=== PATIENT | female | born 2000 | race Caucasian/White ===

== ENCOUNTER 2024-02-21 15:52 | Outpatient (REF) | payer OTHER, SELFPAY ==
[2024-02-21 18:27] LABS: MANUAL DIFF FLAG NO
[2024-02-21 18:38] LABS: Basophils Percent Auto 0.4 % (0-2); Eosinophils Absolute Auto 0.2 X10*3/uL (0.0-0.4); Eosinophils Percent Auto 3.9 % (0-4); Hematocrit 37.8 % (37.0-47.0); Hemoglobin 12.8 g/dl (12.0-16.0); Imm Gran Abs Auto 0.01 X10*3/uL (0.00-0.03); Imm Gran Pct Auto 0.2 % (0.0-0.4); Lymphocytes Absolute Auto 2.3 X10*3/uL (1.2-4.9); Lymphocytes Percent Auto 45.5 % (20-40); Mean Corpuscular HGB Conc 33.9 g/dl (31.0-35.0); Mean Corpuscular Hemoglobin 29.6 pg (27.0-33.0); Mean Corpuscular Volume 87.5 fL (80.0-98.0); Mean Platelet Volume 12.7 fL (9.4-12.3); Monocytes Absolute Auto 0.4 X10*3/uL (0.1-1.2); Monocytes Percent Auto 7.2 % (2-11); Neutrophils Absolute Auto 2.2 x10*3/uL (2.0-8.3); Neutrophils Percent Auto 42.8 % (45-73); Platelet Count 216 X10*3/uL (160-400); Red Blood Count 4.32 X10*6/uL (4.20-5.50); Red Cell Distribution Width 12.1 % (11.0-16.0); White Blood Count 5.1 X10*3/uL (4.8-10.8)
[2024-02-22 10:18] LABS: Complement C3 94 mg/dL (83-193)
[2024-02-22 10:58] LABS: Herpes Simplex Type 1 IgG <0.90 index; Herpes Simplex Type 2 IgG <0.90 index
[2024-02-22 11:13] LABS: IgA 145 mg/dL (47-310); IgG 1234 mg/dL (600-1640); IgM 86 mg/dL (50-300)
[2024-02-22 13:58] LABS: Immunoglobulin E 255 kU/L (<OR=114)
[2024-02-22 15:34] LABS: Immunoglobulin G Subclass 1 646 mg/dL (382-929); Immunoglobulin G Subclass 2 271 mg/dL (241-700); Immunoglobulin G Subclass 3 62 mg/dL (22-178); Immunoglobulin G Subclass 4 49.8 mg/dL (4-86); Immunoglobulin G Total 1133 mg/dL (600-1640)
== END 2024-02-21 15:53 | disposition home or self-care (01) ==
LOC: HO.WFDLDS 15:52
PROVIDERS: Visit Provider Allergy & Immunology
DX: B10.89 Other human herpesvirus infection (principal)
CPT/HCPCS: 82784; 82785; 85025; 86160; 86695; 86696

== ENCOUNTER 2024-03-11 15:45 | Outpatient (AMB) | payer OTHER, SELFPAY ==
--- NOTE | 2024-03-11 15:55 | MHC.PC.OV ---
Vital Signs 03/11/24 16:01 03/11/24 16:23 Height 4 ft 11.92 in Weight 97 lb 6 oz BMI 19.1 BP 126/80 Blood Pressure Location Rt brachial Position Sitting Respiration 14 Pulse 114 H 88 Pulse Source Pulse Oximeter Temp 98.6 F Temp Source Oral Pulse Oximetry (%) 98 Oxygen Delivery Method Room Air Intake Visit Reasons: Establish Care Intake Note: New patient visit Wash Worker Required: No Is last menstrual period known: Yes Last menstrual period: 03/09/24 Allergies peanut Allergy (Intermediate, Verified 03/11/24 16:46) Hives soy Allergy (Intermediate, Verified 03/11/24 16:46) Hives tree nut Allergy (Intermediate, Verified 03/11/24 16:46) Hives wheat Allergy (Intermediate, Verified 03/11/24 16:46) Hives Tobacco use date assessed: 03/11/24 Dental Screening Dental Screen Date: 03/11/24 Did you have a dental visit in the last 12 months?: Yes Did you have a dental problem in the last 6 months where you did not have access to dental care?: No Was dental information given to patient?: Patient has dentist HPI HPI Comments History of Present Illness Details This is a 23-year-old female with a past medical history of food allergies, asthma, environmental allergies and shingles presenting [facility]. She is due for a physical. The patient saw her financial systems manager a couple of weeks ago. She is on Zyrtec and uses nasal spray [rm for environmental allergies. She still has symptoms. She is allergic to peanuts, tree nuts, wheat and soy. If she consumes these foods she gets hives. No history of anaphylaxis. She has mild intermittent asthma treated with albuterol as needed. No hospitalizations or systemic steroids within the past year. She told the financial systems manager that she does seem to get sick frequently with viruses, and she had shingles twice last year. She thought it might be related to stress. She had blood tests performed on the 20 of February. Complement C4 is mildly decreased by the lab range. Her total IgE is 255 which is high, but this likely corresponds to her history of allergic disease. Patient says this started after she had COVID-19 in 2020. She also has felt fatigued and had frequent headaches since that time. She occasionally gets a migraine associated with nausea and sensitivity to light and sound, but usually she just has headaches. She endorses chronic congestion and sinus infections. 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 She gets anxiety at appointments, but she denies anxiety otherwise. She has a history of heavy menstrual periods. Menses last 7 days, and the 1st 4 days are very heavy. She has no appetite during her period. She saw Gynecology last year, and they tried 2 different contraceptive pills, but she did not tolerate side effects. Patient says she becomes cold easily. ROS: Constitutional: No unexplained weight loss, fever, chills or night sweats. Eyes: No vision changes, blurry vision, double vision, eye pain, eye redness, eye discharge. Respiratory: No shortness of breath, cough or sputum production. Cardiovascular: No chest pain, chest pressure or chest discomfort. No palpitations or pedal edema. Gastrointestinal: No anorexia, nausea, vomiting or diarrhea. No abdominal pain or blood in stool. Genitourinary: No dysuria, hematuria, urinary frequency. Neurologic: No dizziness, syncope, unilateral weakness, ataxia, numbness or tingling in the extremities. Hematologic/Lymphatics: No bleeding or bruising. No painful lymph nodes. Endocrine: No heat intolerance Physical exam: Constitutional: Alert, in no distress. Head: Normocephalic. Eyes: Pupils are equal, round and reactive to light. Extraocular muscles intact. Ear, Nose and Throat: TMs normal. Nasal mucosa mildly pale with 2+ hypertrophy of the inferior turbinates. No nasal discharge. No oral lesions. Neck: Supple, Full range of motion. No lymphadenopathy. No palpable thyroid masses. Respiratory: Clear to auscultation. Cardiovascular: S1 S2 regular. No murmurs. Gastrointestinal: Abdomen soft, non-tender, non-distended. Normal bowel sounds. No palpable masses. Neurologic: No focal neurological deficits. Symmetric patellar reflexes. Moves all extremities spontaneously. Sensation intact bilaterally. Skin: No rashes or lesions. Musculoskeletal: No gross deformities. Normal range of motion. Extremities: Warm and well perfused. No clubbing, cyanosis or edema. 3+ peripheral pulses bilaterally. Psychiatric: Normal mood and affect [facility] Medical History (Updated 03/11/24 @ 16:45 by ANNE MARIE Zhang) Heavy menses History of shingles Fatigue Multiple food allergies Mild intermittent asthma without complication Seasonal allergic rhinitis due to pollen Family History (Updated 03/11/24 @ 16:44 by ANNE MARIE Zhang) Mother Asthma Father Asthma Maternal Grandmother Hypertension Diabetes Paternal Grandfather Cardiovascular disease Maternal Grandfather Thyroid disorder Social History (Updated 03/11/24 @ 16:08 by Hui Ryan [facility]) Housing: House Patient Tobacco Use Status: Never used Tobacco e-Cigarette/Vaping Use: Never Used Second Hand Smoke Exposure: No Current occupational status: employed 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 1. Little interest or pleasure in doing things: not at all 2. Feeling down, depressed, or hopeless: not at all 3. Trouble falling or staying asleep, or sleeping too much: not at all 4. Feeling tired or having little energy: not at all 5. Poor appetite or overeating: not at all 6. Feeling bad about yourself - or that you are a failure or have let yourself or your family down: not at all 7. Trouble concentrating on things, such as reading the newspaper or watching television: not at all 8. Moving or speaking so slowly that other people could have noticed. Or the opposite - being so fidgety or restless that you have been moving around a lot more than usual: not at all 9. Thoughts that you would be better off or of hurting yourself in some way: not at all Total score: 0 Depression Screening Interpretation: Negative Depression Screening Done: Yes 54142 - PHQ-9 Billing: Yes Source: Developed by Drs. Terry Worrell, Cher Alaniz, Jose Nickerson and colleagues, with an educational victoriano from [employer]. Thrive Questionnaire Date Thrive assessed: 03/11/24 I am a: Patient What is your living situation today?: I have a steady place to live Within the past 12 months, did the food you bought not last and you didn't have the money to get more?: Never true Within the past 12 months, did you worry whether your food would run out before you got money to buy more?: Never true Do you have trouble paying for medicines?: No Do you have trouble getting transportation to medical appointments?: No Do you have trouble paying your heating and electricity bill?: No Do you have trouble taking care of your child, family member or friend?: No Do you have trouble with day-to-day activities such as bathing, preparing meals, shopping, managing finances, etc.?: No Are you currently unemployed and looking for a job?: No Are you interested in more education?: No Please select the resources that you would like help with: None Currently or been in a relationship where the following occur: No concerns reported THRIVE Score: 0 AUDIT C Alcohol Use Questionnaire (AUDIT-C) 1. How often do you have a drink containing alcohol?: Never 3. How often do you have six or more drinks on one occasion?: Never Total Score: 0 GEMINI-7 AMB Questionnaire GEMINI-7 Date GEMINI - 7 assessed: 03/11/24 Feeling nervous, anxious, or on edge: 0 = Not at all Not being able to stop or control worryin = Not at all Worrying too much about different things: 0 = Not at all Trouble relaxin = Not at all Being so restless that it is hard to sit still: 0 = Not at all Becoming easily annoyed or irritable: 0 = Not at all Feeling afraid as if something awful might happen: 0 = Not at all Total GEMINI-7 score (0-4 normal; 5-9 mild; 10-14 moderate; 15-21 severe): 0 Source: Developed by Drs. Terry Worrell, Cher Alaniz, Jose Nickerson and colleagues, with an educational victoriano from [employer]. GEMINI-7 Assessment Billing GEMINI-7 Assessment Tool: GEMINI-7 Assessment 62292 Physical exam (Primary Care) Vital Signs: Last Vital Signs Temp 98.6 F 03/11/24 16:01 Pulse 114 H 03/11/24 16:01 Resp 14 03/11/24 16:01 BP 126/80 03/11/24 16:01 Pulse Ox 98 03/11/24 16:01 Oxygen Delivery Method Room Air 03/11/24 16:01 BMI result Body Mass Index 19.1 Tobacco/Smoking Status: Tobacco use Status Tobacco use date assessed 03/11/24 03/11/24 16:07 Patient Tobacco Use Status Never used Tobacco 03/11/24 16:09 e-Cigarette/Vaping Use Never Used 03/11/24 16:08 PHQ-9: PHQ-9 Score PHQ-9: Total score 0 03/11/24 16:16 Depression Screening Interpretation: Negative Thrive Assessment: Date of Thrive Assessment Date Thrive assessed 03/11/24 03/11/24 16:07 Currently or been in a relationship where the following occur: No concerns reported Assessment and Plan Assessment & Plan (1) Routine physical examination: Code(s): Z00.00 - Encounter for general adult medical examination without abnormal findings (2) Heavy menses: Code(s): N92.0 - Excessive and frequent menstruation with regular cycle Qualifiers: Menorrhagia type: with regular cycle Qualified Code(s): N92.0 - Excessive and frequent menstruation with regular cycle (3) Fatigue: Code(s): R53.83 - Other fatigue Qualifiers: Fatigue type: chronic, unspecified Qualified Code(s): R53.82 - Chronic fatigue, unspecified (4) Multiple food allergies: Code(s): Z91.018 - Allergy to other foods (5) Mild intermittent asthma without complication: Code(s): J45.20 - Mild intermittent asthma, uncomplicated (6) Seasonal allergic rhinitis due to pollen: Code(s): J30.1 - Allergic rhinitis due to pollen Plan Routine physical exam Patient is seen today for a routine physical. As part of this visit we reviewed the following issues, which are considered and essential part of preventative health in this age group: - Breast Cancer screening - Annual Audio Visual Coordinator exam - Blood pressure screening annually - Cholesterol screening - Osteoporosis prevention including calcium/vitamin D intake, weight bearing exercise & smoking cessation - Nutritional and exercise counseling - Counseling of injury prevention including fire prevention, smoke alarms and seat belt usage - Screening for depression - Prevention of and/or testing for infectious diseases - declined screening tests - Education about skin cancer - Recommendations about immunizations - Recommendation of an eye exam - Screening for substance abuse - Genetic cancer risk screening Heavy menses Check iron studies. Patient advised to schedule follow up/annual if she is due with OBGYN. Fatigue/headaches Suspect possible iron deficiency, allergies contributing to this. She also brings up possibility of long COVID since it started after the infection in 2020. Checking labs for fatigue. Denies snoring but could consider sleep study for persistent symptoms if labs are nondiagnostic. Multiple food allergies Continue strict avoidance. EpiPen is up-to-date per patient. Asthma Controlled. Continue albuterol as needed. Seasonal allergies Continue management per financial systems manager. Follow up based on labs. Orders: Orders TSH reflex Free T4 Today E66.9 - Obesity, unspecified, G89.29 - Other chronic pain, R51.9 - Headache, unspecified, R53.83 - Other fatigue, Z13.6 - Encounter for screening for cardiovascular disorders IRON PROFILE Today G89.29 - Other chronic pain, R51.9 - Headache, unspecified, R53.83 - Other fatigue, Z13.6 - Encounter for screening for cardiovascular disorders Ferritin Today G89.29 - Other chronic pain, R51.9 - Headache, unspecified, R53.83 - Other fatigue, Z13.6 - Encounter for screening for cardiovascular disorders Lyme IgG/IgM w/reflex to WB Today G89.29 - Other chronic pain, R51.9 - Headache, unspecified, R53.83 - Other fatigue, Z13.6 - Encounter for screening for cardiovascular disorders Lipid Panel Today G89.29 - Other chronic pain, R51.9 - Headache, unspecified, R53.83 - Other fatigue, Z13.6 - Encounter for screening for cardiovascular disorders Comprehensive Met. Panel Today G89.29 - Other chronic pain, R51.9 - Headache, unspecified, R53.83 - Other fatigue, Z13.6 - Encounter for screening for cardiovascular disorders Vitamin B12 Today G89.29 - Other chronic pain, R51.9 - Headache, unspecified, R53.83 - Other fatigue, Z13.6 - Encounter for screening for cardiovascular disorders Coding Level of Care Code New Pt Prev Care [id number]([id number] Diagnoses Routine physical examination Z00.00 Menorrhagia with regular cycle N92.0 Menorrhagia type: with regular cycle Chronic fatigue R53.82 Fatigue type: chronic, unspecified Multiple food allergies Z91.018 Mild intermittent asthma without complication J45.20 Seasonal allergic rhinitis due to pollen J30.1 Additional Codes GEMINI-7 Assessment Billing - GEMINI-7 Assessment Tool: GEMINI-7 Assessment [id number] ([id number])
[2024-03-11 16:01] VITALS: BP 126/80; PULSE 114; RESP 14; TEMP 37; O2SAT 98; BMI 19.1
[2024-03-11 16:23] VITALS: PULSE 88
== END 2024-03-11 16:32 | disposition home or self-care (01) ==
PROVIDERS: PCP Physician Assistant Medical; Visit Provider Physician Assistant Medical
DX: Z00.00 Encounter for general adult medical examination without abnormal findings (principal); N92.0 Excessive and frequent menstruation with regular cycle; R53.82 Chronic fatigue, unspecified; Z91.018 Allergy to other foods; J45.20 Mild intermittent asthma, uncomplicated; J30.1 Allergic rhinitis due to pollen
CPT/HCPCS: 99385

== ENCOUNTER 2024-03-22 08:25 | Outpatient (REF) | payer OTHER, SELFPAY ==
[2024-03-22 11:59] LABS: Vitamin B12 485 pg/mL (200-900)
[2024-03-22 12:02] LABS: Alanine Aminotransferase 11 U/L (0-31); Albumin Level 4.5 g/dL (3.5-5.0); Alkaline Phosphatase 62 U/L (39-117); Anion Gap 11 (12-20); Aspartate Amino Transferase 17 U/L (5-31); Bilirubin Total 1.2 mg/dL (0.0-1.0); Blood Urea Nitrogen 11 mg/dL (9-16); Calcium 9.6 mg/dL (8.4-10.2); Carbon Dioxide 25 mmol/L (22-29); Chloride 108 mmol/L (96-108); Cholesterol 159 mg/dL (<200); Estimated Glomerular Filt Rate > 60; Ferritin 16 ng/mL (10-122); Glucose Random 86 mg/dL (60-115); HDL Cholesterol 56 mg/dL (>40); Iron 71 mcg/dL (30-160); LDL Cholesterol Calculated 87 mg/dL (<100); Percent Iron Saturation 21 % (15-50); Potassium 3.6 mmol/L (3.3-5.1); Sodium 140 mmol/L (135-145); TSH reflex Free T4 1.17 uIU/mL (0.32-4.0); Total Iron Binding Capacity 334 mcg/dL (228-428); Total Protein 7.3 g/dL (6.5-8.0); Triglycerides 82 mg/dL (<150); Unsaturated Iron Binding 263 ug/dL
[2024-03-26 01:38] LABS: Lyme Abs Screen <0.90 index
== END 2024-03-22 08:26 | disposition home or self-care (01) ==
LOC: HO.WFDLDS 08:25
PROVIDERS: Visit Provider Physician Assistant Medical
DX: G89.29 Other chronic pain (principal); E66.9 Obesity, unspecified; R51.9 Headache, unspecified; R53.83 Other fatigue; Z13.6 Encounter for screening for cardiovascular disorders
CPT/HCPCS: 36415; 80053; 80061; 82607; 82728; 83540; 84443; 86617; 86618

== ENCOUNTER 2024-11-07 11:33 | Outpatient (AMB) | payer OTHER, SELFPAY ==
--- NOTE | 2024-11-07 11:41 | A.OFFPC_ITS ---
Vital Signs 11/07/24 11:46 Height 4 ft 11.2 in Weight 91 lb 6 oz BMI 18.3 BP 120/77 Blood Pressure Location Rt brachial Position Sitting Respiration 16 Pulse 87 Pulse Source Pulse Oximeter Temp 98.3 F Temp Source Oral Pulse Oximetry (%) 100 Oxygen Delivery Method Room Air Intake Visit Reasons: MEDICATION UPAGE Intake Note: patient here c/o having a very heavy period and is throwing up. she tested positive for the flu at home with a home test and is feeling very weak. 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: No Was dental information given to patient?: Yes HPI HPI Comments History of Present Illness Details This is a 23-year-old female with a past medical history of food allergies, asthma and environmental allergies presenting for a sick visit. She is accompanied by her mother. Patient states see on Monday she developed sore throat, cough, body aches, fatigue and felt feverish. Did not take her temperature. She took a home test on Monday and tested positive for influenza A. She has been using Tylenol as needed with minimal improvement. She felt better yesterday and went back to work. Today she feels more tired. Endorses mild cough. Continues with body aches and fatigue. Sore throat resolved. Did not receive flu vaccine this season. Patient has asthma but denies shortness of breath and wheezing. She has not required her albuterol inhaler this week. Patient says she is vomiting and having diarrhea which she attributes to her menstrual cycle which started this past Monday. She thinks that is also why she feels so tired. She says that she always gets vomiting and diarrhea with menses, and menses is very heavy. She passes clots. She feels very tired. She has not been able to keep much down. Decreased appetite. Vitals are normal. She is able to walk and take care of herself at home. Patient contacted her surgical first assistant's office. She sees the PA at Dr. Sheppard's office. She has tried to oral contraceptive pills in the past which did not work. They discussed a plan of starting the Depo shot, and told her to call 3-5 days after her menstrual period started. She did this this week, but they said that they could not prescribe the Depo shot, and they were asking if I will send it over for her. She has not started it yet. Aside from Tylenol she tried taking 4 mg ondansetron, but she still has little appetite in his vomiting when she tries to eat. Denies abdominal pain. ROS: Constitutional: + weight loss, + subjective fever, no chills, no night sweats, +fatigue Eyes: No vision changes, blurry vision, double vision, eye pain, eye redness, eye discharge. ENT: No ear pain, hearing loss, sinus pain, sneezing, sore throat Respiratory: No shortness of breath or sputum production. Cardiovascular: No chest pain Gastrointestinal: See HPI Genitourinary: No dysuria, hematuria, urinary frequency. Neurologic: No dizziness, syncope, numbness, tingling. + headache. Musculoskeletal: No back pain, joint swelling, weakness Skin: No rash Physical exam: Constitutional: Alert, in no distress. Eyes: Pupils are equal, round and reactive to light. Extraocular muscles intact. Ear, Nose and Throat: TMs normal. Nasal mucosa mildly pale with 2+ hypertrophy of the inferior turbinates. No nasal discharge. Sinuses nontender. No oral lesions. No oropharyngeal exudates, edema or erythema. Neck: Supple, Full range of motion. No lymphadenopathy. Respiratory: Clear to auscultation. Cardiovascular: S1 S2 regular. No murmurs. Gastrointestinal: Abdomen soft, non-tender, non-distended. Normal bowel sounds. No palpable masses. : No CVA tenderness Neurologic: No focal neurological deficits. Skin: No rashes Musculoskeletal: No gross deformities. Normal range of motion. Extremities: Warm and well perfused. No clubbing, cyanosis or edema. Symmetric peripheral pulses bilaterally. Psychiatric: Normal mood and affect [facility] Medical History (Updated 11/07/24 @ 12:45 by ANNE MARIE Zhang) Menorrhagia with irregular cycle Flu-like symptoms Heavy menses History of shingles Fatigue Multiple food allergies Mild intermittent asthma without complication Seasonal allergic rhinitis due to pollen Family History (Updated 03/11/24 @ 16:44 by ANNE MARIE Zhang) Mother Asthma Father Asthma Maternal Grandmother Hypertension Diabetes Paternal Grandfather Cardiovascular disease Maternal Grandfather Thyroid disorder Social History (Updated 03/11/24 @ 16:08 by Hui Ryan CMA) Housing: House Patient Tobacco Use Status: Never used Tobacco e-Cigarette/Vaping Use: Never Used Second Hand Smoke Exposure: No Current occupational status: employed 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 1. Little interest or pleasure in doing things: not at all 2. Feeling down, depressed, or hopeless: not at all 3. Trouble falling or staying asleep, or sleeping too much: not at all 4. Feeling tired or having little energy: not at all 5. Poor appetite or overeating: not at all 6. Feeling bad about yourself - or that you are a failure or have let yourself or your family down: not at all 7. Trouble concentrating on things, such as reading the newspaper or watching television: not at all 8. Moving or speaking so slowly that other people could have noticed. Or the opposite - being so fidgety or restless that you have been moving around a lot more than usual: not at all 9. Thoughts that you would be better off or of hurting yourself in some way: not at all Total score: 0 Source: Developed by Drs. Terry Worrell, Cher Alaniz, Jose Nickerson and colleagues, with an educational victoriano from [employer]. Thrive Questionnaire Date Thrive assessed: 11/07/24 I am a: Patient What is your living situation today?: I have a steady place to live Within the past 12 months, did the food you bought not last and you didn't have the money to get more?: Never true Within the past 12 months, did you worry whether your food would run out before you got money to buy more?: Never true Do you have trouble paying for medicines?: No Do you have trouble getting transportation to medical appointments?: No Do you have trouble paying your heating and electricity bill?: No Do you have trouble taking care of your child, family member or friend?: No Do you have trouble with day-to-day activities such as bathing, preparing meals, shopping, managing finances, etc.?: No Are you currently unemployed and looking for a job?: No Are you interested in more education?: No Please select the resources that you would like help with: None Currently or been in a relationship where the following occur: No concerns reported THRIVE Score: 0 AUDIT C Alcohol Use Questionnaire (AUDIT-C) 1. How often do you have a drink containing alcohol?: Never 3. How often do you have six or more drinks on one occasion?: Never Total Score: 0 GEMINI-7 AMB Questionnaire GEMINI-7 Date GEMINI - 7 assessed: 03/11/24 Feeling nervous, anxious, or on edge: 0 = Not at all Not being able to stop or control worryin = Not at all Worrying too much about different things: 0 = Not at all Trouble relaxin = Not at all Being so restless that it is hard to sit still: 0 = Not at all Becoming easily annoyed or irritable: 0 = Not at all Feeling afraid as if something awful might happen: 0 = Not at all Total GEMINI-7 score (0-4 normal; 5-9 mild; 10-14 moderate; 15-21 severe): 0 Source: Developed by Drs. Terry Worrell, Cher Alaniz, Jose Nickerson and colleagues, with an educational victoriano from [employer]. Physical exam (Primary Care) Vital Signs: Last Vital Signs Temp 98.3 F 11/07/24 11:46 Pulse 87 11/07/24 11:46 Resp 16 11/07/24 11:46 BP 120/77 11/07/24 11:46 Pulse Ox 100 11/07/24 11:46 Oxygen Delivery Method Room Air 11/07/24 11:46 BMI result Body Mass Index 18.3 Tobacco/Smoking Status: Tobacco use Status Tobacco use date assessed 11/07/24 11/07/24 11:49 Patient Tobacco Use Status Never used Tobacco 11/07/24 11:42 e-Cigarette/Vaping Use Never Used 11/07/24 11:42 PHQ-9: PHQ-9 Score PHQ-9: Total score 0 11/07/24 12:15 Thrive Assessment: Date of Thrive Assessment Date Thrive assessed 11/07/24 11/07/24 11:42 Currently or been in a relationship where the following occur: No concerns reported Coding Level of Care Code Est Pt Level 4 (24077) Complex EM visit Add On G2211 Diagnoses Flu-like symptoms R68.89 Menorrhagia with irregular cycle N92.1 Assessment & Plan Assessment & Plan (1) Flu-like symptoms: Code(s): R68.89 - Other general symptoms and signs Category: Medical Plan: Testing for COVID/flu/RSV sent to lab. Patient currently afebrile. Vitals are normal. Check labs. Supportive care at home reviewed. Warning signs warranting ER evaluation reviewed. If she is not able to keep food or liquids down she needs to go to the ER for IV fluids. They understand. Note provided for work. (2) Menorrhagia with irregular cycle: Code(s): N92.1 - Excessive and frequent menstruation with irregular cycle Category: Medical Plan: I am not comfortable starting the patient on Depo-Provera. I will send a message to have nursing reach out to her surgical first assistant office to try and sort this out for the patient. They also requested I put in a referral for alternative OBGYN office which I did urgently for [facility]. Sent ondansetron 8 mg every 8 hours as needed for nausea and vomiting. Side effects reviewed. She has alternating with Tylenol and ibuprofen. Check labs. Plan She will schedule a physical with me this summer. Letter provided for work this week. Orders: Orders Complete Blood Count Auto Diff Today N92.0 - Excessive and frequent menstruation with regular cycle, R68.89 - Other general symptoms and signs Comprehensive Met. Panel Today N92.0 - Excessive and frequent menstruation with regular cycle, R68.89 - Other general symptoms and signs SARS-CoV2/FLU/RSV Today N92.0 - Excessive and frequent menstruation with regular cycle, R09.89 - Other specified symptoms and signs involving the circulatory and respiratory systems, R68.89 - Other general symptoms and signs IRON PROFILE Today N92.0 - Excessive and frequent menstruation with regular cycle, R68.89 - Other general symptoms and signs TSH reflex Free T4 Today N92.0 - Excessive and frequent menstruation with regular cycle, R68.89 - Other general symptoms and signs Magnesium Today N92.0 - Excessive and frequent menstruation with regular cycle, R68.89 - Other general symptoms and signs Referrals TELECOM MANAGER Referral N92.1 - Excessive and frequent menstruation with irregular cycle Medications: New ondansetron 8 mg PO Q8H PRN 30 tabs 0RF nausea and vomiting
[2024-11-07 11:46] VITALS: BP 120/77; PULSE 87; RESP 16; TEMP 36.8; O2SAT 100; BMI 18.3
--- OUTSIDE RECORDS SUMMARY | 2024-11-07 14:06 | XMS_ITS | Data Portability ---
Author Organization [place] - [facility] Olamide Burak [employer] Address [address] [place] [address] Assessment No assessment recorded. Plan of Treatment Reminders Order Date Submit Date Provider Last Modified By Organization Details Last Modified Time Details Appointments None recorded. Lab rapid SARS CoV 2 Ag, QL IA, respiratory specimen 2021 022 [id number] Ariel [address] [place] [address], [place], [address], 2 15:50:49 Referral None recorded. Procedures None recorded. Surgeries None recorded. Imaging None recorded. Medication Orders None recorded. Patient TargetsNo targets recorded. Patient InstructionsNo instructions recorded. Reason for Referral None Reported. Results Created Date Observation Date Name Description Value Unit Range Abnormal Flag Note LastModifiedBy Organization Detail LastModifiedTime 08/17/19 22 08/17/2021 rapid SARS CoV 2 Ag, QL IA, respi rator y speci men Result positi ve Not Available [address], [place], [address], 08/17/2021 14:57:21 Result Notes None recorded. Medical Equipment None Reported. Allergies No known drug allergies Medications Not known to be on any medication Vitals Date Recorded Body height Body mass index (BMI) Body mass index (BMI) Percentile per age and sex Body weight Heart rate Oxygen saturation Oxygen saturation in Arterial blood by Pulse oximetry Body temperature Systolic blood pressure Diastolic blood pressure Provider Name and Address Organization Details Last Updated DateTime 2 152.4 cm 19.5 kg/m2 23 % 98163.2 4 g 98 /min 99 % 99 % 98.3 [degF] 117 mm[Hg] 82 mm[Hg] Esther Alaniz [place] - [facility] 2 15:22:36 Social History None recorded. Functional Status None recorded. Mental Status None recorded. Family History Nothing Reported. Medical History No medical history recorded. Gynecological HistoryNo gynecological history recorded. Obstetrics History GPAL:G 0 P 0 0 0 0 Past Encounters Encounter ID Performer Location Encounter Start Date Encounter Closed Date Diagnosis/Indication Diagnosis SNOMED-CT Code Diagnosis ICD10 Code Diagnosis Note [id number] Augusto Tinsley MD [place] [address] [place] [address] 08/17/2021 12:36:29 08/22/2021 09:35:46 Exposure to SARS-CoV-2 993978891 Z20.822 COVID-19 244931070 U07.1 covid positive. counseled on isolation and otc meds. Health Concerns Section Related Observation LastModified by Organization Detai ls LastModified Time None Recorded Concern Status LastModified by Organization Details LastModified Time None Recorded Advance Directives Directive None Recorded Payers Encounter Date Sequence Insurance Name Policy Number Policy Sales Covered Member ID Sales Member ID Guarantor Name 08/17/2021 [employer] ([facility] Nini Brian [id number] Nini Brian Notes Date Note Type Note Provider Name and Address Organization Details Recorded Time 08/17/2021 text/html COVID-19 February 2020Reported bypatient.COVID-19 Signs and Symptomsbody aches;fatigue;heada darlin Associated Symptoms:no wheezing;sinus congestion/pressure ;runny nose/PND Contacts and Exposureclose contact with a confirmed case of COVID-19 Severity:no pain Augusto Tinsley MD [address], [place], [address], formerly [facility] 08/17/2021 15:52:29 OBGyn Episode No OBEpisode recorded.
== END 2024-11-07 14:17 | disposition home or self-care (01) ==
LOC: HO.HMCFM 11:34
PROVIDERS: PCP Physician Assistant Medical; Visit Provider Physician Assistant Medical
DX: R68.89 Other general symptoms and signs (principal); N92.1 Excessive and frequent menstruation with irregular cycle

== ENCOUNTER 2024-11-07 12:41 | Outpatient (REF) | payer OTHER, SELFPAY ==
[2024-11-07 14:53] LABS: Basophils Percent Auto 0.4 % (0-2); Hemoglobin 12.9 g/dl (12.0-16.0); Lymphocytes Absolute Auto 1.2 X10*3/uL (1.2-4.9); MANUAL DIFF FLAG SCAN; Mean Corpuscular HGB Conc 33.9 g/dl (31.0-35.0); Mean Corpuscular Hemoglobin 29.5 pg (27.0-33.0); Mean Corpuscular Volume 86.8 fL (80.0-98.0); Mean Platelet Volume 12.1 fL (9.4-12.3); Monocytes Absolute Auto 0.2 X10*3/uL (0.1-1.2); Monocytes Percent Auto 6.9 % (2-11); Neutrophils Absolute Auto 1.4 x10*3/uL (2.0-8.3); Neutrophils Percent Auto 50.7 % (45-73); Platelet Count 161 X10*3/uL (160-400); Red Blood Count 4.38 X10*6/uL (4.20-5.50); Red Cell Distribution Width 11.8 % (11.0-16.0); SCAN SMEAR FLAG 1; White Blood Count 2.8 X10*3/uL (4.8-10.8)
[2024-11-07 15:12] LABS: Alanine Aminotransferase 28 U/L (0-31); Albumin Level 4.4 g/dL (3.5-5.0); Anion Gap 13 (12-20); Aspartate Amino Transferase 42 U/L (5-31); Bilirubin Total 0.6 mg/dL (0.0-1.0); Blood Urea Nitrogen 9 mg/dL (9-16); Carbon Dioxide 26 mmol/L (22-29); Chloride 103 mmol/L (96-108); Estimated Glomerular Filt Rate > 60; Glucose Random 96 mg/dL (60-115); Iron 25 mcg/dL (30-160); Percent Iron Saturation 10 % (15-50); Potassium 3.8 mmol/L (3.3-5.1); Sodium 138 mmol/L (135-145); Total Iron Binding Capacity 258 mcg/dL (228-428); Total Protein 7.4 g/dL (6.5-8.0); Unsaturated Iron Binding 233 ug/dL
[2024-11-07 15:19] LABS: SLIDE REVIEW VERIFIED
[2024-11-07 15:21] LABS: Alkaline Phosphatase 62 U/L (39-117)
[2024-11-07 15:27] LABS: TSH reflex Free T4 0.48 uIU/mL (0.32-4.0)
[2024-11-07 15:40] LABS: Influenza A PCR POSITIVE (Negative); Influenza B PCR NEGATIVE (Negative); Resp Syncy Virus RNA Qual PCR NEGATIVE (Negative); SARS COV2 PCR INHOUSE NEGATIVE (Negative)
== END 2024-11-07 12:42 | disposition home or self-care (01) ==
LOC: HO.WFDLDS 12:41
PROVIDERS: Visit Provider Physician Assistant Medical
DX: R68.89 Other general symptoms and signs (principal); N92.0 Excessive and frequent menstruation with regular cycle; R09.89 Other specified symptoms and signs involving the circulatory and respiratory systems; R05.8 Other specified cough
CPT/HCPCS: 0241U; 36415; 80053; 83540; 83735; 84443; 85025

== ENCOUNTER 2025-03-27 16:06 | Outpatient (AMB) | payer OTHER, SELFPAY ==
--- NOTE | 2025-03-27 16:18 | A.OFFPC_ITS ---
Vital Signs 03/27/25 16:24 Height 4 ft 11.2 in Weight 93 lb 8 oz BMI 18.8 BP 106/72 Blood Pressure Location Rt brachial Position Sitting Respiration 16 Pulse 110 H Pulse Source Pulse Oximeter Temp 98.7 F Temp Source Temporal Artery Scan Pulse Oximetry (%) 98 Oxygen Delivery Method Room Air Intake Visit Reasons: physical exam - see comments Intake Note: Nini presents in the office today for her annual physical. Allergies peanut Allergy (Intermediate, Verified 03/27/25 16:21) Hives soy Allergy (Intermediate, Verified 03/27/25 16:21) Hives tree nut Allergy (Intermediate, Verified 03/27/25 16:21) Hives wheat Allergy (Intermediate, Verified 03/27/25 16:21) Hives Seasonal Allergies Allergy (Verified 03/27/25 16:21) Itchy Eyes Tobacco use date assessed: 03/27/25 Dental Screening Dental Screen Date: 03/27/25 Did you have a dental visit in the last 12 months?: No Did you have a dental problem in the last 6 months where you did not have access to dental care?: No Was dental information given to patient?: Yes HPI HPI Comments History of Present Illness Details This is a 23-year-old female with a past medical history of food allergies, asthma and environmental allergies presenting for a physical exam. Endorses frequent rapid heart beat which has also been documented at office visits. She notices this during the day and night regardless of activity level. Heart rate is initially 110 today. Drinks 1 cup of coffee in the morning. No stimulants or decongestants. Does not drink a lot of water during the day. Walks for exercise. Denies chest pain or shortness of breath. No syncope or lightheadedness. Followed by OBGYN. She has a history of menorrhagia with an irregular menstrual cycle. She was placed on Depo. After the 1st injection she had menstrual bleeding for 3 months. She had her 2nd injection and has had no bleeding for the past 2 weeks. Reports hair thinning since starting Depo. 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 Declined Tdap vaccine. No interval food reactions. EpiPen needs to be refilled. ROS: Constitutional: No unexplained weight loss, fever, chills, fatigue or night sweats. Eyes: No vision changes, blurry vision, double vision, eye pain, eye redness, eye discharge. ENT: No hearing loss, sneezing, congestion, runny nose or sore throat. Respiratory: No shortness of breath, cough or sputum production. Cardiovascular: No chest pain, chest pressure or chest discomfort or pedal edema. Gastrointestinal: No anorexia, nausea, vomiting or diarrhea. No abdominal pain or blood in stool. Genitourinary: No dysuria, hematuria, urinary frequency. Neurologic: No headache, dizziness, syncope, unilateral weakness, ataxia, numbness or tingling in the extremities. Musculoskeletal: No muscle pain, back pain, joint pain or swelling. Hematologic/Lymphatics: No bleeding or bruising. No painful lymph nodes. Skin: No rash Endocrine: No cold or heat intolerance. No polyuria or polydipsia. Psychiatric: No depression or anxiety. No SI/HI. Physical exam: Constitutional: Alert, in no distress. Head: Normocephalic. Eyes: Pupils are equal, round and reactive to light. Extraocular muscles intact. Ear, Nose and Throat: Canals clear. TMs normal. Normal nasal mucosa. No nasal discharge. No oral lesions. Neck: Supple, Full range of motion. No lymphadenopathy. No palpable thyroid masses. Respiratory: Clear to auscultation. Cardiovascular: S1 S2 regular. No murmurs. No carotid bruits. Gastrointestinal: Abdomen soft, non-tender, non-distended. Normal bowel sounds. No palpable masses. Neurologic: No focal neurological deficits. Symmetric patellar reflexes. Moves all extremities spontaneously. Sensation intact bilaterally. Skin: No rashes or lesions. Musculoskeletal: No gross deformities. Normal range of motion. Extremities: Warm and well perfused. No clubbing, cyanosis or edema. 3+ peripheral pulses bilaterally. Psychiatric: Normal mood and affect [facility] Medical History (Updated 03/27/25 @ 16:53 by ANNE MARIE Zhang) Tachycardia Routine physical examination Screening for cardiovascular condition Hair loss Menorrhagia with irregular cycle Flu-like symptoms Heavy menses History of shingles Fatigue Multiple food allergies Mild intermittent asthma without complication Seasonal allergic rhinitis due to pollen Family History Mother Asthma Father Asthma Maternal Grandmother Hypertension Diabetes Paternal Grandfather Cardiovascular disease Maternal Grandfather Thyroid disorder Social History (Updated 03/27/25 @ 16:23 by Jany Kingston MA) Housing: House Alcohol intake: never Patient Tobacco Use Status: Never used Tobacco e-Cigarette/Vaping Use: Never Used Second Hand Smoke Exposure: No Current occupational status: employed 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 1. Little interest or pleasure in doing things: not at all 2. Feeling down, depressed, or hopeless: not at all 3. Trouble falling or staying asleep, or sleeping too much: not at all 4. Feeling tired or having little energy: not at all 5. Poor appetite or overeating: not at all 6. Feeling bad about yourself - or that you are a failure or have let yourself or your family down: not at all 7. Trouble concentrating on things, such as reading the newspaper or watching television: not at all 8. Moving or speaking so slowly that other people could have noticed. Or the opposite - being so fidgety or restless that you have been moving around a lot more than usual: not at all 9. Thoughts that you would be better off or of hurting yourself in some way: not at all Total score: 0 Depression Screening Interpretation: Negative Depression Screening Done: Yes 93080 - PHQ-9 Billing: Yes Source: Developed by Drs. Terry Worrell, Cher Alaniz, Jose Nickerson and colleagues, with an educational victoriano from [employer]. Thrive Questionnaire Date Thrive assessed: 03/27/25 I am a: Patient What is your living situation today?: I have a steady place to live Within the past 12 months, did the food you bought not last and you didn't have the money to get more?: Never true Within the past 12 months, did you worry whether your food would run out before you got money to buy more?: Never true Do you have trouble paying for medicines?: No Do you have trouble getting transportation to medical appointments?: No Do you have trouble paying your heating and electricity bill?: No Do you have trouble taking care of your child, family member or friend?: No Do you have trouble with day-to-day activities such as bathing, preparing meals, shopping, managing finances, etc.?: No Are you currently unemployed and looking for a job?: No Are you interested in more education?: No Please select the resources that you would like help with: None Currently or been in a relationship where the following occur: No concerns reported THRIVE Score: 0 AUDIT C Alcohol Use Questionnaire (AUDIT-C) 1. How often do you have a drink containing alcohol?: Never 3. How often do you have six or more drinks on one occasion?: Never Total Score: 0 GEMINI-7 AMB Questionnaire GEMINI-7 Date GEMINI - 7 assessed: 03/27/25 Feeling nervous, anxious, or on edge: 0 = Not at all Not being able to stop or control worryin = Not at all Worrying too much about different things: 0 = Not at all Trouble relaxin = Not at all Being so restless that it is hard to sit still: 0 = Not at all Becoming easily annoyed or irritable: 0 = Not at all Feeling afraid as if something awful might happen: 0 = Not at all Total GEMINI-7 score (0-4 normal; 5-9 mild; 10-14 moderate; 15-21 severe): 0 Source: Developed by Drs. Terry Worrell, Cher Alaniz, Jose Nickerson and colleagues, with an educational victoriano from [employer]. GEMINI-7 Assessment Billing GEMINI-7 Assessment Tool: GEMINI-7 Assessment 74013 Physical exam (Primary Care) Vital Signs: Last Vital Signs Temp 98.7 F 03/27/25 16:24 Pulse 110 H 03/27/25 16:24 Resp 16 03/27/25 16:24 BP 106/72 03/27/25 16:24 Pulse Ox 98 03/27/25 16:24 Oxygen Delivery Method Room Air 03/27/25 16:24 BMI result Body Mass Index 18.8 Tobacco/Smoking Status: Tobacco use Status Tobacco use date assessed 03/27/25 03/27/25 16:28 Patient Tobacco Use Status Never used Tobacco 03/27/25 16:23 e-Cigarette/Vaping Use Never Used 03/27/25 16:23 PHQ-9: PHQ-9 Score PHQ-9: Total score 0 03/27/25 16:45 Depression Screening Interpretation: Negative Thrive Assessment: Date of Thrive Assessment Date Thrive assessed 03/27/25 03/27/25 16:28 Currently or been in a relationship where the following occur: No concerns reported Office Procedures EKG Details: EKG shows normal sinus rhythm, 86 beats per minute, left axis deviation 64507-[id number], Complete Coding Level of Care Code Est Pt Prev Care 18-39y(06498) Diagnoses Routine physical examination Z00.00 Multiple food allergies Z91.018 Hair loss L65.9 Tachycardia R00.0 CPT Codes EKG - CPT: 80140-Fanbzfroqtfsizcad, Complete ([id number]) Additional Codes GEMINI-7 Assessment Billing - GEMINI-7 Assessment Tool: GEMINI-7 Assessment 50893 ([id number]) PHQ-9 - 49999 - PHQ-9 Billing: Yes ([id number]) Assessment & Plan Assessment & Plan (1) Routine physical examination: Code(s): Z00.00 - Encounter for general adult medical examination without abnormal findings Category: Medical Plan: Patient is seen today for a routine physical. As part of this visit we reviewed the following issues, which are considered and essential part of preventative health in this age group: - Breast Cancer screening - Annual Special Education Para Professional exam - Blood pressure screening annually - Cholesterol screening - Osteoporosis prevention including calcium/vitamin D intake, weight bearing exercise & smoking cessation - Nutritional and exercise counseling - Counseling of injury prevention including fire prevention, smoke alarms and seat belt usage - Screening for depression - Prevention of and/or testing for infectious diseases- declined screening tests - Education about skin cancer - Recommendations about immunizations - Recommendation of an eye exam - Screening for substance abuse (2) Multiple food allergies: Code(s): Z91.018 - Allergy to other foods Category: Medical Plan: Continue strict avoidance of food allergens. EpiPen refilled. (3) Hair loss: Code(s): L65.9 - Nonscarring hair loss, unspecified Category: Medical Plan: Check labs. This could be related to Depo shot and heavy menses causing physiological stress. (4) Tachycardia: Code(s): R00.0 - Tachycardia, unspecified Category: Medical Plan: EKG today shows normal sinus rhythm, 82 beats per minute. She denies chest pain or shortness of breath. She reports prior EKGs have been normal. Suspect left axis deviation is due to lead reversal however staff was not at the office following the appointment to repeat it due to the visit being at the end of the day. Patient agreeable to returning within 1 week to repeat the EKG, and we are getting an echocardiogram in any case due to tachycardia. Holter monitor also ordered. Check labs for thyroid disease, anemia, electrolyte disturbance. Plan Follow up in 8 weeks. Orders: Orders Lipid Panel Today E78.5 - Hyperlipidemia, unspecified, L65.9 - Nonscarring hair loss, unspecified, Z00.00 - Encounter for general adult medical examination with out abnormal findings, Z13.6 - Encounter for screening for cardiovascular disorders CA echo transthoracic complete Today R00.0 - Tachycardia, unspecified ECG holter monitor 48 hour Today R00.0 - Tachycardia, unspecified Vitamin D 25-OH (D2 and D3) Today L65.9 - Nonscarring hair loss, unspecified, Z00.00 - Encounter for general adult medical examination without abnormal findings, Z13.6 - Encounter for screening for cardiovascular disorders TSH reflex Free T4 Today L65.9 - Nonscarring hair loss, unspecified, Z00.00 - Encounter for general adult medical examination without abnormal findings, Z13.6 - Encounter for screening for cardiovascular disorders Vitamin B12 Today L65.9 - Nonscarring hair loss, unspecified, Z00.00 - Encounter for general adult medical examination without abnormal findings, Z13.6 - Encounter for screening for cardiovascular disorders, Z91.89 - Other specified personal risk factors, not elsewhere classified Comprehensive Met. Panel Today L65.9 - Nonscarring hair loss, unspecified, Z00.00 - Encounter for general adult medical examination without abnormal findings, Z13.6 - Encounter for screening for cardiovascular disorders Complete Blood Count Auto Diff Today L65.9 - Nonscarring hair loss, unspecified, Z00.00 - Encounter for general adult medical examination without abnormal findings, Z13.6 - Encounter for screening for cardiovascular disorders AMB EKG-In Office Today R00.0 - Tachycardia, unspecified Medications: New epinephrine (EpiPen) 0.3 mg (0.3 mL) IM ONCE PRN 1 ea 2RF anaphylaxis
--- OUTSIDE RECORDS SUMMARY | 2025-03-27 16:21 | XMS_ITS ---
Author Name [facility] Organization Unknown Care Team Organization Name Specialty Phone Email Start Date End Da te [facility] Jessica Smith [facility] 11/01/20222023 [facility] [place], PROVIDER Primary Care 08/08/202202/28 [facility] Delia Govea Primary [facility] 06/07/2022 03/18/20 24
[2025-03-27 16:24] VITALS: BP 106/72; PULSE 110; RESP 16; TEMP 37.1; O2SAT 98; BMI 18.8
== END 2025-03-27 17:08 | disposition home or self-care (01) ==
LOC: HO.HMCFM 16:07
PROVIDERS: PCP Physician Assistant Medical; Visit Provider Physician Assistant Medical
DX: Z00.00 Encounter for general adult medical examination without abnormal findings (principal); Z91.018 Allergy to other foods; L65.9 Nonscarring hair loss, unspecified; R00.0 Tachycardia, unspecified

== ENCOUNTER → 2025-03-27 16:06 | Outpatient (BNVA) | payer OTHER, SELFPAY | PROVIDERS: PCP Physician Assistant Medical; Visit Provider Physician Assistant Medical | DX: Z00.00 Encounter for general adult medical examination without abnormal findings (principal); L65.9 Nonscarring hair loss, unspecified; R00.0 Tachycardia, unspecified; Z91.018 Allergy to other foods; Z13.31 Encounter for screening for depression; Z13.39 Encounter for screening examination for other mental health and behavioral disorders | CPT/HCPCS: 93005; 96127 ==

== ENCOUNTER 2025-04-03 08:02 | Outpatient (REF) | payer OTHER, SELFPAY ==
[2025-04-03 11:21] LABS: MANUAL DIFF FLAG NO
[2025-04-03 11:31] LABS: Hematocrit 38.2 % (37.0-47.0); Hemoglobin 13.0 g/dl (12.0-16.0); Imm Gran Abs Auto 0.00 X10*3/uL (0.00-0.03); Imm Gran Pct Auto 0.0 % (0.0-0.4); Lymphocytes Absolute Auto 1.9 X10*3/uL (1.2-4.9); Mean Corpuscular HGB Conc 34.0 g/dl (31.0-35.0); Mean Corpuscular Hemoglobin 29.9 pg (27.0-33.0); Mean Corpuscular Volume 87.8 fL (80.0-98.0); NRBC Abs Auto 0.000 X10*3/uL (0.0-0.012); NRBC Pct Auto 0.0 /100WBC (0.0-0.2); Platelet Count 196 X10*3/uL (160-400); Red Blood Count 4.35 X10*6/uL (4.20-5.50); White Blood Count 3.9 X10*3/uL (4.8-10.8)
[2025-04-03 12:10] LABS: Vitamin B12 613 pg/mL (200-900)
[2025-04-03 12:12] LABS: Alanine Aminotransferase 20 U/L (0-31); Albumin Level 4.8 g/dL (3.5-5.0); Alkaline Phosphatase 50 U/L (39-117); Anion Gap 12 (12-20); Aspartate Amino Transferase 28 U/L (5-31); Blood Urea Nitrogen 11 mg/dL (9-16); Calcium 9.2 mg/dL (8.4-10.2); Carbon Dioxide 22 mmol/L (22-29); Chloride 110 mmol/L (96-108); Cholesterol 140 mg/dL (<200); Estimated Glomerular Filt Rate > 60; Ferritin 20 ng/mL (10-122); HDL Cholesterol 44 mg/dL (>40); Iron 92 mcg/dL (30-160); Percent Iron Saturation 29 % (15-50); Potassium 3.7 mmol/L (3.3-5.1); Sodium 140 mmol/L (135-145); Total Iron Binding Capacity 320 mcg/dL (228-428); Total Protein 7.3 g/dL (6.5-8.0); Triglycerides 62 mg/dL (<150); Unsaturated Iron Binding 228 ug/dL
[2025-04-07 13:25] LABS: Vitamin D 25-OH, D2 7 ng/mL; Vitamin D 25-OH, D3 17 ng/mL; Vitamin D 25-OH, Total 24 ng/mL (30-100)
== END 2025-04-03 08:03 | disposition home or self-care (01) ==
LOC: HO.WFDLDS 08:02
PROVIDERS: Visit Provider Physician Assistant Medical
DX: Z00.00 Encounter for general adult medical examination without abnormal findings (principal); Z13.6 Encounter for screening for cardiovascular disorders; D64.9 Anemia, unspecified; E78.5 Hyperlipidemia, unspecified; L65.9 Nonscarring hair loss, unspecified; R68.89 Other general symptoms and signs; Z13.21 Encounter for screening for nutritional disorder; Z91.89 Other specified personal risk factors, not elsewhere classified
CPT/HCPCS: 36415; 80053; 80061; 82306; 82607; 82728; 83540; 84443; 85025

== ENCOUNTER → 2025-04-07 15:47 | Outpatient (BNVA) | payer OTHER, SELFPAY | PROVIDERS: PCP Physician Assistant Medical; Visit Provider Physician Assistant Medical | DX: Z13.89 Encounter for screening for other disorder (principal) ==

== ENCOUNTER → 2025-04-08 10:07 | Outpatient (REF) | payer OTHER, SELFPAY ==
--- NOTE | 2025-04-08 10:09 | CA_ITS ---
Transthoracic Echocardiogram Patient (Last, First, Middle): Nini Brian, Gender: Female Date of : 2000 Age: 24 Procedure Date: 04/08/2025 Procedure Type: Transthoracic Echocardiogram Location: OP Height: 152.4 cm Weight: 42.18 kg BSA: 1.35 m2 Heart Rate: bpm BP: 110 / 70 mmHg Insulation Board Back Tender: TO Referring MD: Linda KENNEY Appraiser Timber: Aaron Waddell MD Symptoms: R00.0 - Tachycardia, unspecified Study Quality: Adequate ECG Rhythm: Sinus Conclusions: - Low normal LV ejection fraction 50-55% otherwise normal study Findings Left Ventricle Normal left ventricular cavity size. There is normal left ventricular wall thickness. The left ventricular systolic function is low normal. The visually estimated ejection fraction is between 50-55%. Spectral Doppler is indicative of a normal filling pattern. Right Ventricle Normal right ventricular cavity size and systolic function. Atria Both atria are normal in size. There is no evidence of interatrial shunt. Aortic Valve Normal aortic valve structure and function. There is no aortic valve stenosis. There is no aortic valve regurgitation. Mitral Valve Normal mitral valve structure and function. There is trace mitral valve regurgitation. There is no mitral valve stenosis. Pulmonic Valve The pulmonic valve is likely normal. Tricuspid Valve Normal tricuspid valve structure. There is trace tricuspid valve regurgitation. The right ventricular systolic pressure is normal. The right ventricular systolic pressure is 18 mmHg. Normal right atrial pressure. There is no evidence of pulmonary hypertension. Great Vessels All visible segments of the aorta are normal in size. The pulmonary artery was not well visualized. Venous The inferior vena cava is normal in size and collapses greater than 50% with inspiration. Pericardium/Pleural There is no evidence of pericardial effusion. Prior Study Comparison No prior study available for comparison. Measurements 2D Linear Measurements IVSd: 0.50 0.6-0.9/0.6-1.0 cm LVIDd: 4.51 3.9-5.3/4.2-5.9 cm LVIDd Index: 3.34 2.4-3.2/2.2-3.1 cm/m2 LVIDs: 3.20 2.0-3.6 cm LVPWd: 0.50 0.7-1.1 cm LA Diam: 2.50 2.7-3.8/3.0-4.0 cm LAIDs Index: 1.85 1.5-2.3 cm/m2 LV Mass: 78.95 67-162/88-224 g LV Mass Index: 58.48 43-95/49-115 g/m2 LVOT Diam: 2.00 3.0+(-)1.3 cm Mitral Valve MV Pk E: 0.56 MV PK A: 0.36 MV Decel Time: 146.00 E/A: 1.60 E'Lateral: 16.50 E'Medial: 9.68 E/E' Med: 5.80 E/E' Lat: 3.40 PHT: 43.00 MVA PHT: 5.12 Decel [place]: 3.85 Aortic Valve AoV Pk Julio César: 1.13 AoV Mn Julio César: 0.81 AoV VTI: 0.20 AoV Pk Grad: 5.00 Aov Mn Grad: 3.00 MAURY Cont.VTI: 2.31 LVOT LVOT Pk Julio César: 0.78 LVOT Mn Julio César: 0.56 LVOT VTI: 0.14 LVOT Pk Grad: 2.00 LVOT Mn Grad: 1.00 LVOT Diam: 2.00 LVOT Area: 3.14 Diastolic Function MV Pk E: 0.56 MV Pk A: 0.36 E/A: 1.60 E'Medial: 9.68 E/E' Med: 5.80 E' Laterial: 16.50 E/E' Lat: 3.40 Right Ventricle TAPSE (mm): 13.90 TVS' Julio César: 8.11 Tricuspid Valve TR Pk Julio César: 1.91 TR Pk Grad: 15.00 RA Press: 3.00 RVSP: 18.00 Great Vessels Aorta Ao Asc: 2.10 2.1-3.4 cm Ao Arch: 2.00 Updated in Other Vendor System with Status of Final Aaron Waddell MD electronically signed on 04/08/2025 2:36:19 PM with status of Final
--- NOTE | 2025-04-08 11:09 | HM_ITS ---
* Total monitoring time 2 days. * Underlying rhythm is sinus with an average rate of 89/Min. * Rare ventricular ectopy. * No significant pauses or high-grade AV blocks. * No patient markers or diary events. MTDD
== END ==
LOC: HO.CARD 10:07
PROVIDERS: PCP Physician Assistant Medical; Visit Provider Physician Assistant Medical
DX: R00.0 Tachycardia, unspecified (principal); I49.3 Ventricular premature depolarization
CPT/HCPCS: 93225; 93306

== ENCOUNTER → 2025-04-08 10:09 | Outpatient (BNV) | payer OTHER, SELFPAY | PROVIDERS: PCP Physician Assistant Medical; Visit Provider Internal Medicine Cardiovascular Disease | DX: R94.31 Abnormal electrocardiogram [ECG] [EKG] (principal); R00.0 Tachycardia, unspecified | CPT/HCPCS: 93306 ==